=== PATIENT | male | born 1960 | race Caucasian/White ===

== ENCOUNTER 2017-05-12 13:48 | Outpatient (CLI) | payer BC ==
[~2017-05-12 13:48] MED LIST: 0.9 % SODIUM CHLORIDE 1,000 ML IV SCH; 0.9 % SODIUM CHLORIDE PF 10 ML VIAL IJ SCH; HEPARIN SODIUM 500 UNIT/5 ML DISP.SYRIN IV SCH
[2017-05-12] MEDS ORDERED: SALINE FLUSH 10 ML DISP.SYRIN IVF ONE (14:00)
[2017-05-12] MEDS ORDERED: NORMAL SALINE 1,000 ML IV.SOLN IV ONE (14:00)
[2017-05-12] MEDS ORDERED: HEPARIN SODIUM 500 UNIT/5 ML DISP.SYRIN IV ONE (14:00)
== END 2017-05-12 13:50 ==
LOC: INF 13:48
PROVIDERS: ATTEND Internal Medicine Medical Oncology
DX: E86.0 Dehydration (principal); C83.39 Diffuse large B-cell lymphoma, extranodal and solid organ sites
CPT/HCPCS: J1642; J7030; 96360; 96361

== ENCOUNTER 2017-05-13 13:30 | Outpatient (CLI) | payer BC ==
[~2017-05-13 13:30] MED LIST changes: -0.9 % SODIUM CHLORIDE PF 10 ML VIAL IJ SCH; +SALINE FLUSH 10 ML DISP.SYRIN IVF SCH
[2017-05-13] MEDS ORDERED: SALINE FLUSH 10 ML DISP.SYRIN IVF ONE (14:00)
[2017-05-13] MEDS ORDERED: HEPARIN SODIUM 500 UNIT/5 ML DISP.SYRIN IV ONE (14:00)
[2017-05-13] MEDS ORDERED: NORMAL SALINE 1,000 ML IV.SOLN IV ONE (14:00)
== END 2017-05-13 13:31 ==
LOC: INF 13:30
PROVIDERS: ATTEND Internal Medicine Medical Oncology
DX: E86.0 Dehydration (principal); C83.39 Diffuse large B-cell lymphoma, extranodal and solid organ sites
CPT/HCPCS: J1642; J7030; 96360; 96361